=== PATIENT | female | born 1945 | race American Indian/Alaskan Native ===

== ENCOUNTER 2018-12-10 09:37 | Emergency (ER) | payer OTHER, MEDICARE ==
[2018-12-10 09:43] VITALS: BP 218/85
--- NOTE | 2018-12-10 10:23 | Emergency Department Report ---
ED Fall HPI - General Chief Complaint: Fall Stated Complaint: FELL AT WORK Time Seen by Provider: 12/10/18 10:15 Source: patient Mode of arrival: Ambulatory - History of Present Illness MD Complaint: fall -: Gradual, Sudden, days(s) (2) Fall From: standing (ground-level) Place Fall [place]urred[place] Prolonged Down Time?: no Symptoms Prior to Fall: none (mechanical fall) Location: buttocks Severity: mild Quality: dull Associated Symptoms: denies: neck pain, numbness, weakness, shortness of breath, abdominal pain, hematuria, unable to walk, lightheaded, vertigo, confusion - Related Data Home Medications Medication Instructions Recorded Confirmed Last Taken amLODIPine [Norvasc] 10 mg PO DAILY 03/12/15 03/12/15 Unknown Previous Rx's Medication Instructions Recorded Last Taken Type HYDROcodone/APAP 5-325 [[place] 1 each PO Q6HR PRN #20 tablet 03/12/15 Unknown Rx 5/325] Tramadol HCl/Acetaminophen 1 each PO Q6HR PRN #10 tablet 12/10/18 Unknown Rx [Ultracet] Allergies Allergy/AdvReac Type Severity Reaction Status Date / Time penicillin Allergy Swelling Verified 12/10/18 09:40 ED Review of Systems ROS: Stated complaint: FELL AT WORK Other details as noted in HPI Constitutional: denies: chills, fever Eyes: denies: eye pain, eye discharge, vision change ENT: denies: ear pain, throat pain Respiratory: denies: cough, shortness of breath, wheezing Cardiovascular: denies: chest pain, palpitations Endocrine: no symptoms reported Gastrointestinal: denies: abdominal pain, nausea, diarrhea Genitourinary: denies: urgency, dysuria, discharge Musculoskeletal: denies: back pain, joint swelling, arthralgia Skin: denies: rash, lesions Neurological: denies: headache, weakness, paresthesias Psychiatric: denies: anxiety, depression Hematological/Lymphatic: denies: easy bleeding, easy bruising ED Past Medical Hx - Past Medical History Previous Medical History?: Yes Hx Hypertension: Yes Additional medical history: Patient states she is under the care of Dr. Rainey for some leaky heart valves, but no history of heart failure. - Surgical History Past Surgical History?: Yes Additional Surgical History: COLON SURGERY - Social History Smoking Status: Never Smoker Substance Use Type: None - Medications Home Medications: Home Medications Medication Instructions Recorded Confirmed Last Taken Type HYDROcodone/APAP 5-325 [[place] 1 each PO Q6HR PRN #20 tablet 03/12/15 Unknown Rx 5/325] amLODIPine [Norvasc] 10 mg PO DAILY 03/12/15 03/12/15 Unknown History Tramadol HCl/Acetaminophen 1 each PO Q6HR PRN #10 tablet 12/10/18 Unknown Rx [Ultracet] ED Physical Exam - General Limitations: No Limitations General appearance: alert, in no apparent distress - Head Head exam: Present: atraumatic, normocephalic - Eye Eye exam: Present: normal appearance, PERRL, EOMI Pupils: Present: normal accommodation - ENT ENT exam: Present: normal exam, normal orophraynx, mucous membranes moist - Neck Neck exam: Present: normal inspection - Respiratory Respiratory exam: Present: normal lung sounds bilaterally. Absent: respiratory distress - Cardiovascular Cardiovascular Exam: Present: regular rate, normal rhythm. Absent: systolic murmur, diastolic murmur, rubs, gallop - GI/Abdominal GI/Abdominal exam: Present: soft, normal bowel sounds. Absent: guarding, rebound, mass, bruit, pulsatile mass - Extremities Exam Extremities exam: Present: normal inspection, full ROM, normal capillary refill. Absent: pedal edema, joint swelling - Back Exam Back exam: Present: normal inspection, vertebral tenderness (there is tenderness to the sacral region with palpation. Also tenderness to the lower lumbar region with palpation. His sister leg raise is normal. There is full range of motion. No tenderness to the sacroiliac joint.) - Neurological Exam Neurological exam: Present: alert, oriented X3, CN II-XII intact, normal gait - Psychiatric Psychiatric exam: Present: normal affect, normal mood - Skin Skin exam: Present: warm, dry, intact, normal color. Absent: rash ED Course Vital Signs 12/10/18 09:40 Temperature 98.2 F Pulse Rate 85 Respiratory 16 Rate Blood Pressure 218/85 [Right] O2 Sat by Pulse 99 Oximetry ED Medical Decision Making - Medical Decision Making [id number] female, ground-level fall, with normal x-ray results. Patient is ambulatory and respond to the that time for him to a pain medication. 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 Exit emerge. She been advised to return to emergency department should of neurological symptoms emerge or pain becomes worse. Critical care attestation.: If time is entered above; I have spent that time in minutes in the direct care of this critically ill patient, excluding procedure time. ED Disposition Clinical Impression: Fall from ground level, Lower back pain, Coccydynia Disposition: - TO HOME OR SELFCARE Is pt being admited?: No Does the pt Need Aspirin: No Condition: Stable Instructions: Lumbar Radiculopathy (ED), Arthralgia (ED), Ice Pack Application (ED) Prescriptions: Tramadol HCl/Acetaminophen [Ultracet] 1 each PO Q6HR PRN #10 tablet PRN Reason: Pain Referrals: COLBY VALDEZ MD [Primary Care Provider] - 3-5 Days
[2018-12-10] MEDS ORDERED: IBUPROFEN PO ONE (12:33)
--- NOTE | 2018-12-10 14:17 | XRay Report ---
AP AND LATERAL LUMBOSACRAL SPINE: SACRUM AND COCCYX, 2 VIEWS History: GLF and landed on buttocks The vertebral bodies are well mineralized and normal in alignment and vertebral height . The visualized portions of the posterior elements are normal. There is moderate degenerative change at L5-S1. The sacrum and coccyx are unremarkable IMPRESSION: No acute abnormality.
== END 2018-12-10 14:31 | disposition home or self-care (01) ==
LOC: ED 09:37
DX: M53.3 Sacrococcygeal disorders, not elsewhere classified (principal); I10 Essential (primary) hypertension; Z90.49 Acquired absence of other specified parts of digestive tract; Z88.0 Allergy status to penicillin; Z79.899 Other long term (current) drug therapy; W18.30XA Fall on same level, unspecified, initial encounter; Y93.89 Activity, other specified; Y92.520 Airport as the place of occurrence of the external cause; Y99.0 Civilian activity done for income or pay
CPT/HCPCS: 72100; 72220; 99283